=== PATIENT | female | born 1960 | race Caucasian/White ===

== ENCOUNTER 2017-08-16 00:46 | Emergency (ER) | payer BC ==
[2017-08-16] MEDS ORDERED: oxyCODONE/Acetamin 5/325 MG* TAB PO ONE (01:14)
--- NOTE | 2017-08-16 01:22 | ED ---
Upper Extremity Pain - HPI Summary HPI Summary: Pt. is a 57 y.o female who presents to the ER after a fall that occurred just prior to arrival. Pt. states that she had 2 recent surgeries on her right elbow for bursitis. Her last surgery was 08/10/17. Pt. states tonight she went to get out of her recliner when the bottom pushed her and she fell forward onto her right arm. She denies striking her head or LOC. She notes exacerbation of chronic neck pain. Her main complaint is pain to right shoulder and right elbow. She notes new tingling to 5th and 4th digits of right hand. Symptoms are mild in severity. Moving right arm makes symptoms worse. Rest makes symptoms better. - History of Current Complaint Chief Complaint: EDExtremityUpper Stated Complaint: FALL Time Seen by Provider: 08/16/17 01:04 Hx Obtained From: Patient - Allergies/Home Medications Allergies/Adverse Reactions: Allergies Allergy/AdvReac Type Severity Reaction Status Date / Time oxcarbazepine Allergy Unknown Verified 08/16/17 01:01 [From Trileptal] Reaction Details promethazine [From Phenergan] Allergy Unknown Verified 08/16/17 00:59 Reaction Details Sulfa (Sulfonamide Allergy Unknown Verified 08/16/17 01:00 Antibiotics) Reaction Details steroids Allergy Unknown Uncoded 08/16/17 01:00 Reaction Details Home Medications: Home Medications Esomeprazole Magnesium [Nexium] 40 mg PO DAILY 08/16/17 [History Confirmed 08/16] Gabapentin 300 mg PO DAILY 08/16/17 [History Confirmed 08/16/17] Levothyroxine Sodium 137 mcg PO DAILY 08/16/17 [History Confirmed 08/16/17] Lisinopril 20 mg PO DAILY 08/16/17 [History Confirmed 08/16/17] Melatonin [Ra Melatonin] 10 mg PO DAILY 08/16/17 [History Confirmed 08/16/17] Oxycodone HCl/Acetaminophen [Endocet] 1 tab PO Q6HR PRN 08/16/17 [History Confirmed 08/16/17] Trazodone HCl 150 mg PO DAILY 08/16/17 [History Confirmed 08/16/17] Venlafaxine HCl [Effexor XR-] 75 mg PO DAILY 08/16/17 [History Confirmed ] lamoTRIgine [Lamotrigine] 200 mg PO DAILY 08/16/17 [History Confirmed 08/16/17] PMH/Surg Hx/FS Hx/Imm Hx Previously Healthy: Yes Infectious Disease History: No Infectious Disease History: Denies: Traveled Outside the [place] in Last 30 Days - Social History Occupation: Unemployed Lives: With Family Review of Systems Positive: Other - Right arm pain. Tingling in 4th and 5th digits. Skin: Negative All Other Systems Reviewed And Are Negative: Yes Physical Exam Triage Information Reviewed: Yes Vital Signs On Initial Exam: Initial Vitals Temp Pulse Resp BP Pulse Ox 97.8 F 79 18 150/94 95 08/16/17 01:01 08/16/17 01:01 08/16/17 01:01 08/16/17 01:01 08/16/17 01:01 Vital Signs Reviewed: Yes Appearance: Positive: Well-Appearing - Pt. lying on bed in NAD. present. Skin: Positive: Warm, Dry Head/Face: Positive: Normal Head/Face Inspection Eyes: Positive: Normal Neck: Positive: Supple, Other: - No midline tenderness. Pain over the right trapezius. Musculoskeletal: Positive: Other - Cast noted on right UE. Pain diffusely over right shoulder. Fingers are warm with normal sensation. Nailpolish present, unable to access capillary refill. Diffuse pain with movement of right arm. Neurological: Positive: Normal, CN Intact II-III Psychiatric: Positive: Affect/Mood Appropriate Diagnostics - Vital Signs Vital Signs Temp Pulse Resp BP Pulse Ox 08/16/17 01:01 97.8 F 79 18 150/94 95 - Laboratory Lab Statement: Any lab studies that have been ordered have been reviewed, and results considered in the medical decision making process. Course/Dx - Course Course Of Treatment: Pt. presenting to the ER after falling and injurying right arm she recently had surgery on. Xrays ordered. Pt. given percocet for pain. She does c/o exacerbation of chronic neck pain without midline tenderness. Xrays reviewed by myself and Dr. Hayward and are negative for acute findings. Results discussed. Advised pt. to call her orthopedic doctor tomorrow to schedule a f.u apt. To return to ER if sxs change or worsen. - Diagnoses Differential Diagnosis/HQI/PQRI: Positive: Contusion, Fracture (Closed), Strain , Sprain Provider Diagnoses: Elbow pain, Shoulder pain Discharge - Sign-Out/Discharge Documenting (check all that apply): Discharge/Admit/Transfer - Discharge Plan Condition: Good Disposition: HOME Referrals: Prabhjot Kent DO [Primary Care Provider] - Additional Instructions: Call your orthopedic doctor in the morning to schedule an appointment Return to ER if symptoms change or worsen - Billing Disposition and Condition Condition: GOOD Disposition: Home
[2017-08-16] MEDS ORDERED: Ondansetron ODT TAB* 4 MG PO ONE (01:28)
[2017-08-16] MEDS ORDERED: Ondansetron ODT TAB* 4 MG ONE (01:29)
[2017-08-16 03:15] VITALS: BP 122/84
--- NOTE | 2017-08-16 07:56 | RAD ---
HISTORY: fall, right arm pain, recent surgery COMPARISONS: None VIEWS: 2, Frontal and lateral views of the right elbow performed in a cast which obscures fine bone detail. Evaluation is also limited by the obliquity of the frontal projection. FINDINGS: BONE DENSITY: Normal. BONES: There is no displaced fracture. JOINTS: There is no arthropathy. ALIGNMENT: There is no dislocation. SOFT TISSUES: Unremarkable. OTHER FINDINGS: None. IMPRESSION: NO ACUTE OSSEOUS INJURY. IF SYMPTOMS PERSIST, RECOMMEND REPEAT IMAGING. NO DISCREPANCY
--- NOTE | 2017-08-16 07:57 | RAD ---
INDICATION: Right shoulder pain COMPARISON: None TECHNIQUE: Routine frontal, Y and axial views were obtained. FINDINGS: There is moderate AC joint osteoarthritis. There is a detached osteophyte or a remote fracture about the distal clavicle. There is minor glenohumeral osteoarthritis. IMPRESSION: AC JOINT OSTEOARTHRITIS.
== END 2017-08-16 03:14 | disposition home or self-care (01) ==
LOC: ED 00:46
DX: M25.511 Pain in right shoulder (principal); M19.011 Primary osteoarthritis, right shoulder; M79.601 Pain in right arm; M25.521 Pain in right elbow
CPT/HCPCS: 99283; A9270-GY